=== PATIENT | male | born 1945 | race Caucasian/White ===

== ENCOUNTER 2024-03-27 21:07 | Inpatient (IN) | payer MEDICARE ==
[~2024-03-27] VITALS: Ht 175.3 cm; Wt 63.0 kg
[2024-03-27] MEDS ORDERED: CEFTRIAXONE /D5W 50ML IVPB **ER PYXIS IV ONE (21:56)
[2024-03-27 22:06] LABS: EOSINOPHILS % (AUTO) 0.1 % (0.0-7.0); HEMATOCRIT 34.9 % (36.7-47.1); HEMOGLOBIN 11.4 g/dL (12.5-16.3); LYMPHOCYTES # (AUTO) 0.6 K/uL (0.8-4.8); LYMPHOCYTES % (AUTO) 3.9 % (20.5-51.5); MEAN CORPUSCULAR HEMOGLOBIN 29.2 uug (23.8-33.4); MEAN CORPUSCULAR HGB CONC 33 g/dL (32.5-36.3); MEAN CORPUSCULAR VOLUME 89.3 fL (73.0-96.2); MONOCYTES # (AUTO) 0.8 K/uL (0.1-1.30); MONOCYTES % (AUTO) 5.1 % (0.0-11.0); NEUTROPHILS % (AUTO) 90.9 % (38.5-71.5); PLATELET COUNT (AUTO) 244 K/uL (152-348); WHITE BLOOD COUNT (AUTO) 16.6 K/uL (3.6-10.2)
[2024-03-27 22:07] LABS: DIFFERENTIAL COMMENT 1
[2024-03-27] MEDS: IV NORMAL SALINE 1000 ML BAG IV ONE (22:10)
[2024-03-27] MEDS: CEFTRIAXONE 1 G in IV DEXTROSE 5% 50 ML IV STA (22:10)
[2024-03-27 22:12] LABS: CALCIUM 9.8 mg/dL (8.5-10.1); CARBON DIOXIDE 31 mmol/L (21-32); CHLORIDE 102 mmol/L (98-107); CREATININE 0.8 mg/dL (0.6-1.3); GLUCOSE 168 mg/dL (74-106); POTASSIUM 3.2 mmol/L (3.5-5.1); SODIUM SERUM 142 mmol/L (136-145); UREA NITROGEN, BLOOD 29 mg/dL (7-18)
[2024-03-27] MEDS ORDERED: CARB1TAB21 PO (22:12)
[2024-03-27] MEDS ORDERED: AMAN100T PO (22:12)
[2024-03-27] MEDS ORDERED: APIX5TAB PO (22:12)
[2024-03-27] MEDS ORDERED: ASPI81TA31 PO (22:12)
[2024-03-27] MEDS ORDERED: ATOR40TA PO (22:12)
[2024-03-27] MEDS ORDERED: POLY17PO4 PO (22:12)
[2024-03-27] MEDS ORDERED: HYDR-3974 PO (22:12)
[2024-03-27 22:25] LABS: ALBUMIN 2.4 g/dL (3.4-5.0); ALKALINE PHOSPHATASE 95 U/L (50-136); BILIRUBIN,DIRECT 0.3 mg/dL (0.0-0.2); BILIRUBIN,TOTAL 0.7 mg/dL (0.2-1.0); NT-PRO BNP 626 pg/mL (0-125); TOTAL PROTEIN, SERUM 6.4 g/dL (6.4-8.2)
[2024-03-27 22:44] LABS: ALANINE AMINOTRANSFERASE 6 U/L (16-63); ASPARTATE AMINOTRANSFERASE < 5 U/L (15-37)
[2024-03-28] VITALS (9 sets, daily range): BP systolic 107–150; BP diastolic 57–71; TEMP 98–99.3; O2SAT 91–96
[2024-03-28] MEDS ORDERED: REMEDY ESSENTIAL ZINC PASTE 113 GM TP PRN (00:45)
[2024-03-28] MEDS ORDERED: IV NORMAL SALINE 1000 ML BAG IV ONE (00:45)
[2024-03-28] MEDS ORDERED: ONDANSETRON 4 MG/2 ML VIAL IV PRN (00:45)
[2024-03-28] MEDS ORDERED: AZITHROMYCIN 500MG/ D5W 250ML IVPB **ER PYXIS ONLY IV ONE (02:52)
[2024-03-28] MEDS: IV 1/2NS 1000 ML 1,000 ML IV PRN (03:09)
[2024-03-28] MEDS: AZITHROMYCIN IV 500 MG in IV DEXTROSE 5% 250 ML IV ONE (03:10)
[2024-03-28] MEDS: HYDROCODONE/APAP 5-325MG TABLET PO PRN (03:59)
[2024-03-28] MEDS: PANTOPRAZOLE SODIUM 40 MG TABLET.DR PO SCH (06:57)
[2024-03-28] MEDS ORDERED: ENOXAPARIN SODIUM 40 MG/0.4 ML DISP.SYRIN SQ SCH ×2 (09:00)
[2024-03-28] MEDS: CARBIDOPA/LEVODOPA 25-100MG TABLET PO SCH (09:25)
[2024-03-28] MEDS: MIRALAX 17 GM POWD.PACK PO SCH (09:25)
[2024-03-28] MEDS: AMANTADINE HCL 100 MG CAPSULE PO SCH (09:25)
[2024-03-28] MEDS: ASPIRIN 81 MG TAB.CHEW PO SCH (09:25)
[2024-03-28] MEDS: ACETYLCYSTEINE 10% 4ML VIAL NEB SCH (11:15)
[2024-03-28] MEDS: ALBUTEROL SULFATE 1.25 MG/3 ML NEBU NEB SCH (11:30)
[2024-03-28] MEDS: IPRATROPIUM BROMIDE 0.5 MG/2.5 ML NEBU NEB SCH (11:30)
[2024-03-28 11:47] LABS: BASOPHILS % (AUTO) 0.1 % (0.0-2.0); EOSINOPHILS # (AUTO) 0.1 K/uL (0.0-0.7); EOSINOPHILS % (AUTO) 0.5 % (0.0-7.0); HEMATOCRIT 32.9 % (36.7-47.1); HEMOGLOBIN 10.8 g/dL (12.5-16.3); LYMPHOCYTES # (AUTO) 0.8 K/uL (0.8-4.8); MEAN CORPUSCULAR HEMOGLOBIN 29.3 uug (23.8-33.4); MEAN CORPUSCULAR HGB CONC 33 g/dL (32.5-36.3); MEAN CORPUSCULAR VOLUME 89.8 fL (73.0-96.2); MONOCYTES # (AUTO) 0.8 K/uL (0.1-1.30); MONOCYTES % (AUTO) 5.1 % (0.0-11.0); NEUTROPHILS # (AUTO) 13.5 K/uL (1.8-8.9); NEUTROPHILS % (AUTO) 89.3 % (38.5-71.5); PLATELET COUNT (AUTO) 223 K/uL (152-348); RED BLOOD CELL COUNT(AUTO) 3.67 MIL/uL (4.06-5.63); RED CELL DISTRIBUTION WIDTH 14.8 % (12.1-16.2); WHITE BLOOD COUNT (AUTO) 15.2 K/uL (3.6-10.2)
[2024-03-28 11:51] LABS: DIFFERENTIAL COMMENT 1
[2024-03-28 11:54] LABS: CALCIUM 9.4 mg/dL (8.5-10.1); CREATININE 0.6 mg/dL (0.6-1.3); POTASSIUM 3.3 mmol/L (3.5-5.1)
[2024-03-28] MEDS: APIXABAN 5 MG TABLET PO SCH (12:29)
[2024-03-28] MEDS: POTASSIUM CHLORIDE 10 MEQ TAB.PRT.SR PO ONE (12:39)
[2024-03-28] MEDS: ATORVASTATIN 40 MG TABLET PO SCH (20:52)
[2024-03-28] MEDS: CEFTRIAXONE 1 G in IV DEXTROSE 5% 50 ML IV SCH (21:00)
[2024-03-28] MEDS ORDERED: AZITHROMYCIN IV 500 MG in IV DEXTROSE 5% 250 ML IV SCH (21:00)
[2024-03-29] VITALS (15 sets, daily range): BP systolic 92–135; BP diastolic 56–80; TEMP 97.5–99.6; O2SAT 91–98
[2024-03-29] MEDS: AZITHROMYCIN IV 500 MG in IV DEXTROSE 5% 250 ML IV SCH (02:38)
[2024-03-29 06:38] LABS: BASOPHILS % (AUTO) 0.2 % (0.0-2.0); EOSINOPHILS % (AUTO) 0.4 % (0.0-7.0); HEMATOCRIT 31.8 % (36.7-47.1); HEMOGLOBIN 10.5 g/dL (12.5-16.3); LYMPHOCYTES # (AUTO) 0.7 K/uL (0.8-4.8); LYMPHOCYTES % (AUTO) 6.5 % (20.5-51.5); MEAN CORPUSCULAR HEMOGLOBIN 29.1 uug (23.8-33.4); MEAN CORPUSCULAR HGB CONC 33 g/dL (32.5-36.3); MEAN CORPUSCULAR VOLUME 88.4 fL (73.0-96.2); MONOCYTES # (AUTO) 0.9 K/uL (0.1-1.30); MONOCYTES % (AUTO) 7.9 % (0.0-11.0); NEUTROPHILS # (AUTO) 9.8 K/uL (1.8-8.9); PLATELET COUNT (AUTO) 273 K/uL (152-348); RED BLOOD CELL COUNT(AUTO) 3.59 MIL/uL (4.06-5.63); RED CELL DISTRIBUTION WIDTH 15.4 % (12.1-16.2); WHITE BLOOD COUNT (AUTO) 11.5 K/uL (3.6-10.2)
[2024-03-29] MEDS ORDERED: CEFEPIME HCL 1 G VIAL ONE (06:40)
[2024-03-29 06:43] LABS: DIFFERENTIAL COMMENT 1
[2024-03-29] MEDS: CEFEPIME HCL 1 G in IV DEXTROSE 5% 50 ML IV SCH (06:46)
[2024-03-29 07:14] LABS: CALCIUM 9.4 mg/dL (8.5-10.1); CARBON DIOXIDE 31 mmol/L (21-32); CHLORIDE 105 mmol/L (98-107); CREATININE 0.5 mg/dL (0.6-1.3); GLUCOSE 103 mg/dL (74-106); MAGNESIUM 1.8 mg/dL (1.8-2.4); PHOSPHOROUS 2.3 mg/dL (2.5-4.9); POTASSIUM 3.6 mmol/L (3.5-5.1); SODIUM SERUM 141 mmol/L (136-145); UREA NITROGEN, BLOOD 14 mg/dL (7-18)
[2024-03-29 07:26] LABS: THYROID STIMULATING HORMONE 1.894 mIU/mL (0.358-3.740)
[2024-03-29] MEDS: NEUTRA PHOS PACKET PO ONE (15:06)
[2024-03-29] MEDS: ACETAMINOPHEN 325 MG TABLET PO PRN (17:17)
[2024-03-29] MEDS: MAGNESIUM HYDROXIDE 30 ML LIQUID UDC PO PRN (21:15)
[2024-03-29] MEDS: MORPHINE SULFATE 2 MG/1 ML DISP.SYRIN IV PRN (21:16)
[2024-03-30] VITALS (16 sets, daily range): BP systolic 91–104; BP diastolic 45–64; TEMP 97.6–98.3; O2SAT 93–99
[2024-03-30 06:55] LABS: BASOPHILS % (AUTO) 0.2 % (0.0-2.0); EOSINOPHILS # (AUTO) 0.1 K/uL (0.0-0.7); HEMATOCRIT 32.6 % (36.7-47.1); HEMOGLOBIN 10.7 g/dL (12.5-16.3); LYMPHOCYTES # (AUTO) 1.1 K/uL (0.8-4.8); LYMPHOCYTES % (AUTO) 12.9 % (20.5-51.5); MEAN CORPUSCULAR HEMOGLOBIN 29.4 uug (23.8-33.4); MEAN CORPUSCULAR HGB CONC 33 g/dL (32.5-36.3); MONOCYTES # (AUTO) 0.7 K/uL (0.1-1.30); MONOCYTES % (AUTO) 8.4 % (0.0-11.0); NEUTROPHILS # (AUTO) 6.4 K/uL (1.8-8.9); NEUTROPHILS % (AUTO) 77.5 % (38.5-71.5); PLATELET COUNT (AUTO) 299 K/uL (152-348); RED BLOOD CELL COUNT(AUTO) 3.66 MIL/uL (4.06-5.63); WHITE BLOOD COUNT (AUTO) 8.2 K/uL (3.6-10.2)
[2024-03-30 07:22] LABS: CALCIUM 9.3 mg/dL (8.5-10.1); CARBON DIOXIDE 30 mmol/L (21-32); CHLORIDE 104 mmol/L (98-107); CREATININE 0.6 mg/dL (0.6-1.3); DIFFERENTIAL COMMENT 1; GLUCOSE 88 mg/dL (74-106); MAGNESIUM 1.9 mg/dL (1.8-2.4); PHOSPHOROUS 3.6 mg/dL (2.5-4.9); POTASSIUM 3.9 mmol/L (3.5-5.1); SODIUM SERUM 140 mmol/L (136-145); UREA NITROGEN, BLOOD 14 mg/dL (7-18)
[2024-03-31] VITALS (14 sets, daily range): BP systolic 101–109; BP diastolic 55–76; TEMP 97.6–98.3; O2SAT 93–100
[2024-03-31 07:01] LABS: BASOPHILS % (AUTO) 0.2 % (0.0-2.0); EOSINOPHILS # (AUTO) 0.1 K/uL (0.0-0.7); EOSINOPHILS % (AUTO) 1.8 % (0.0-7.0); HEMATOCRIT 33.6 % (36.7-47.1); HEMOGLOBIN 10.9 g/dL (12.5-16.3); MEAN CORPUSCULAR HGB CONC 33 g/dL (32.5-36.3); MEAN CORPUSCULAR VOLUME 89.1 fL (73.0-96.2); MONOCYTES # (AUTO) 0.6 K/uL (0.1-1.30); MONOCYTES % (AUTO) 9.3 % (0.0-11.0); NEUTROPHILS # (AUTO) 5.1 K/uL (1.8-8.9); NEUTROPHILS % (AUTO) 74.7 % (38.5-71.5); PLATELET COUNT (AUTO) 338 K/uL (152-348); RED BLOOD CELL COUNT(AUTO) 3.77 MIL/uL (4.06-5.63); RED CELL DISTRIBUTION WIDTH 15.5 % (12.1-16.2); WHITE BLOOD COUNT (AUTO) 6.8 K/uL (3.6-10.2)
[2024-03-31 07:13] LABS: DIFFERENTIAL COMMENT 1
[2024-03-31 07:24] LABS: CALCIUM 9.2 mg/dL (8.5-10.1); CARBON DIOXIDE 32 mmol/L (21-32); CHLORIDE 103 mmol/L (98-107); CREATININE 0.6 mg/dL (0.6-1.3); GLUCOSE 96 mg/dL (74-106); PHOSPHOROUS 2.5 mg/dL (2.5-4.9); POTASSIUM 3.5 mmol/L (3.5-5.1); SODIUM SERUM 140 mmol/L (136-145); UREA NITROGEN, BLOOD 13 mg/dL (7-18)
[2024-04-01] VITALS (14 sets, daily range): BP systolic 121–130; BP diastolic 58–76; TEMP 97.5–98.1; O2SAT 95–99
[2024-04-01] MEDS: REMEDY ESSENTIAL ZINC PASTE 113 GM TOP SCH (21:05)
[2024-04-02] VITALS (9 sets, daily range): BP systolic 93–109; BP diastolic 69–74; TEMP 97.6–98.9; O2SAT 95–100
[2024-04-02 07:33] LABS: BASOPHILS % (AUTO) 0.2 % (0.0-2.0); EOSINOPHILS # (AUTO) 0.1 K/uL (0.0-0.7); HEMATOCRIT 34.1 % (36.7-47.1); HEMOGLOBIN 11.3 g/dL (12.5-16.3); LYMPHOCYTES # (AUTO) 1.1 K/uL (0.8-4.8); LYMPHOCYTES % (AUTO) 14.1 % (20.5-51.5); MEAN CORPUSCULAR HEMOGLOBIN 29.2 uug (23.8-33.4); MEAN CORPUSCULAR HGB CONC 33 g/dL (32.5-36.3); MEAN CORPUSCULAR VOLUME 88.5 fL (73.0-96.2); MONOCYTES # (AUTO) 0.5 K/uL (0.1-1.30); MONOCYTES % (AUTO) 7.1 % (0.0-11.0); NEUTROPHILS % (AUTO) 77.6 % (38.5-71.5); PLATELET COUNT (AUTO) 386 K/uL (152-348); RED BLOOD CELL COUNT(AUTO) 3.85 MIL/uL (4.06-5.63); WHITE BLOOD COUNT (AUTO) 7.8 K/uL (3.6-10.2)
[2024-04-02 07:39] LABS: CARBON DIOXIDE 30 mmol/L (21-32); CHLORIDE 104 mmol/L (98-107); CREATININE 0.5 mg/dL (0.6-1.3); GLUCOSE 98 mg/dL (74-106); POTASSIUM 3.5 mmol/L (3.5-5.1); SODIUM SERUM 142 mmol/L (136-145); UREA NITROGEN, BLOOD 10 mg/dL (7-18)
[2024-04-02 07:47] LABS: CALCIUM 9.1 mg/dL (8.5-10.1)
[2024-04-02] MEDS ORDERED: IPRA0.2S6 NEB (10:01)
[2024-04-02] MEDS ORDERED: CEFE1FRO IV (10:01)
[2024-04-02] MEDS ORDERED: ACET100V5 NEB (10:01)
[2024-04-02] MEDS ORDERED: ALBU1.25 NEB (10:01)
== END 2024-04-02 17:10 | disposition hospice, home (50) | DRG 177 ==
LOC: EDBD 21:09 → ER 21:09 → TELE3 03-28 00:30 → MEDSURG3 03-28 12:20
PROVIDERS: ADMIT Nurse Practitioner Acute Care; ATTEND Nurse Practitioner Acute Care
DX: J69.0 Pneumonitis due to inhalation of food and vomit (principal); J96.01 Acute respiratory failure with hypoxia; J44.1 Chronic obstructive pulmonary disease with (acute) exacerbation; D68.69 Other thrombophilia; E44.0 Moderate protein-calorie malnutrition; J44.0 Chronic obstructive pulmonary disease with (acute) lower respiratory infection; J90 Pleural effusion, not elsewhere classified; J98.11 Atelectasis; I48.20 Chronic atrial fibrillation, unspecified; E86.0 Dehydration; G20.B1 Parkinson's disease with dyskinesia, without mention of fluctuations; D64.9 Anemia, unspecified; E78.5 Hyperlipidemia, unspecified; E87.6 Hypokalemia; E88.09 Other disorders of plasma-protein metabolism, not elsewhere classified; I10 Essential (primary) hypertension; Z87.891 Personal history of nicotine dependence; Z79.01 Long term (current) use of anticoagulants; Z66 Do not resuscitate; D72.829 Elevated white blood cell count, unspecified; Z73.6 Limitation of activities due to disability; G20.A1 Parkinson's disease without dyskinesia, without mention of fluctuations; F02.80 Dementia in other diseases classified elsewhere, unspecified severity, without behavioral disturbance, psychotic disturbance, mood disturbance, and anxiety; L89.621 Pressure ulcer of left heel, stage 1; L89.611 Pressure ulcer of right heel, stage 1; L98.8 Other specified disorders of the skin and subcutaneous tissue; Z99.3 Dependence on wheelchair; Z68.20 Body mass index [BMI] 20.0-20.9, adult
CPT/HCPCS: 36415; 71045; 83605; 83735; 84100; 84443; 84484; 85025; 87040; 93005; 93307; 94640; 94664; 94760; A4606; A4663; A6213; G0378; J0456; J0692; J0696; J2270; J3590; J7040; J7050